=== PATIENT | male | born 1985 | race Caucasian/White ===

== ENCOUNTER 2023-06-01 05:29 | Inpatient (IN) | payer OTHER ==
[2023-06-01] VITALS (10 sets, daily range): BP systolic 101–129; BP diastolic 60–84; PULSE 60–99; RESP 16–22; TEMP 97.1–99.8
[~2023-06-01] VITALS: Ht 185.4 cm; Wt 96.5 kg
[2023-06-01] MEDS ORDERED: 0.9% SODIUM CHLORIDE 10 ML SYRINGE IVP PRN ×2 (06:00→09:45)
[2023-06-01] MEDS: SODIUM CHLORIDE 0.9% 2,450 ML IV ONE (06:09)
[2023-06-01 06:13] LABS: BASOPHILS % (AUTO) 0.9 % (0.0-2.0); EOSINOPHILS % (AUTO) 0.2 % (1.0-6.0); HEMOGLOBIN 7.2 g/dL (13.5-17.5); LYMPHOCYTES # (AUTO) 0.6 K/uL (1.0-4.8); MEAN CORPUSCULAR HEMOGLOBIN 36.2 pg (26.0-34.0); MEAN CORPUSCULAR HGB CONC 35.2 G/dL (31.0-37.0); MEAN CORPUSCULAR VOLUME 103 fL (80-100); MONOCYTES # (AUTO) 0.4 K/uL (0.1-1.0); MONOCYTES % (AUTO) 7.2 % (2.0-9.0); NEUTROPHILS # (AUTO) 4.8 K/uL (1.8-7.7); NEUTROPHILS % (AUTO) 81.7 % (40.0-70.0); PLATELET COUNT (AUTO) 107 K/uL (150-450); RED CELL DISTRIBUTION WIDTH 14.2 % (11.5-14.5); WHITE BLOOD COUNT (AUTO) 5.8 K/uL (4.5-11.0)
[2023-06-01 06:14] LABS: APPEARANCE,URINE CLEAR (CLEAR); BILIRUBIN,URINE NEGATIVE (NEGATIVE); COLOR,URINE YELLOW (YELLOW); GLUCOSE, URINE (UA) NEGATIVE (NEGATIVE); LEUKOCYTE ESTERASE ,URINE NEGATIVE (NEGATIVE); NITRATE,URINE NEGATIVE (NEGATIVE); OCCULT BLOOD,URINE NEGATIVE (NEGATIVE); PROTEIN,URINE NEGATIVE (NEGATIVE); SPECIFIC GRAVITIY, URINE 1.019 (1.003-1.030)
[2023-06-01 06:19] LABS: ANION GAP 18 mmol/L (8-16); CALCIUM, TOTAL 8.6 mg/dL (8.8-10.5); CARBON DIOXIDE 20 mmol/L (22-29); CHLORIDE 109 mmol/L (98-107); CREATININE 1.15 mg/dL (0.60-1.30); GLOMERULAR FILTR. RATE CALC 55 mL/min (>60); GLUCOSE,RANDOM 117 mg/dL (70-110); POTASSIUM 3.2 mmol/L (3.5-5.1); SODIUM SERUM 147 mmol/L (136-145); UREA NITROGEN, BLOOD 21 mg/dL (7-18)
[2023-06-01 06:21] LABS: INR 1.9 (0.9-1.1); PROTHROMBIN TIME 19.1 SEC (9.4-11.6)
[2023-06-01 06:22] LABS: HEMATOCRIT 20.6 % (41-53)
[2023-06-01 06:24] LABS: ALANINE AMINOTRANSFERASE 23 U/L (12-78); ALBUMIN 3.2 g/dL (3.4-5.0); ALKALINE PHOSPHATASE 90 U/L (46-116); ASPARTATE AMINOTRANSFERASE 93 U/L (15-37); BILIRUBIN,TOTAL 7.6 mg/dL (0.1-1.0); TOTAL PROTEIN, SERUM 6.8 g/dL (6.4-8.2)
[2023-06-01] MEDS ORDERED: IOHEXOL 350 MG/ML 100 ML VIAL ONE (06:26)
[2023-06-01] MEDS ORDERED: SODIUM CHLORIDE 0.9% 100 ML ONE (06:26)
[2023-06-01] MEDS: PIPERACILLIN/TAZO 3.375 GM/D5W 50 ML IV ONE (06:28)
[2023-06-01 06:42] LABS: LACTIC ACID 2.3 mmol/L (0.4-2.0)
[2023-06-01] MEDS: LORazepam 2 MG/ML VIAL IVP ONE ×2 (06:42→08:08)
[2023-06-01] MEDS: VANCOMYCIN HCL 1.25 GM in DEXTROSE 5%-WATER 250 ML IV ONE (06:42)
[2023-06-01] MEDS: PANTOPRAZOLE SODIUM 40 MG/VIAL IVP ONE (06:43)
[2023-06-01 06:53] LABS: ALCOHOL, BLOOD (SERUM) < 3 mg/dL (0-10)
[2023-06-01 06:56] LABS: TROPONIN I-HIGH SENSITIVITY 96 ng/L (<76)
[2023-06-01 07:02] LABS: B-TYPE NATRIURETIC PEPTIDE 512 pg/mL (0-100)
[2023-06-01 07:03] LABS: BILIRUBIN,TOTAL 7.6 mg/dL (0.1-1.0)
[2023-06-01 07:04] LABS: CREATINE KINASE, TOTAL ONLY 1144 U/L (39-308)
[2023-06-01 07:09] LABS: LIPASE 14 U/L (16-77)
[2023-06-01 07:29] LABS: ALCOHOL, URINE DRUG SCREEN NEGATIVE (NEGATIVE); AMPHET/METH SCREEN,URINE POSITIVE (NEGATIVE); BARBITURATE SCREEN, URINE NEGATIVE (NEGATIVE); BENZODIAZEPINES SCREEN,URINE NEGATIVE (NEGATIVE); CANNABINOID SCREEN,URINE POSITIVE (NEGATIVE); COCAINE SCREEN,URINE NEGATIVE (NEGATIVE); METHADONE SCREEN, URINE NEGATIVE (NEGATIVE); OPIATE SCREEN,URINE NEGATIVE (NEGATIVE); PHENCYCLIDINE SCREEN,URINE NEGATIVE (NEGATIVE)
[2023-06-01] MEDS: AZITHROMYCIN 500 MG/NS 250 ML IV ONE (07:29)
[2023-06-01] MEDS: OCTREOTIDE ACETATE 100 MCG/ML VIAL IVP ONE (07:39)
[2023-06-01] MEDS: OCTREOTIDE ACETATE 500 MCG in SODIUM CHLORIDE 0.9% 97.5 ML IV SCH ×2 (07:40→16:33)
[2023-06-01 07:59] LABS: INFLUENZA A-RTPCR,COMBO NEGATIVE (NEGATIVE); INFLUENZA B-RTPCR,COMBO NEGATIVE (NEGATIVE); RESPIRATORY SYNCYTIAL VRS-PCR NEGATIVE (NEGATIVE); SARS COVID19 RTPCR, COMBO NEGATIVE (NEGATIVE)
[2023-06-01 08:21] LABS: TROPONIN I-HIGH SENSITIVITY 105 ng/L (<76)
[2023-06-01 08:25] LABS: RBC MORPHOLOGY COMMENT ABNORMAL RBC MORPH
[2023-06-01] MEDS: PANTOPRAZOLE SODIUM 80 MG in SODIUM CHLORIDE 0.9% 100 ML IV SCH ×2 (08:45→18:32)
[2023-06-01] MEDS: LACTULOSE 200 GM/300 ML RECTAL SOLUTION PR ONE (08:45)
[2023-06-01] MEDS: HALOPERIDOL LACTATE 5 MG/ML VIAL IM ONE (08:46)
[2023-06-01] MEDS: DiphenhydrAMINE HCL 50 MG/ML VIAL IM ONE (08:46)
[2023-06-01] MEDS: LORazepam 2 MG/ML VIAL IM ONE (08:46)
[2023-06-01] MEDS ORDERED: ONDANSETRON HCL 4 MG/2 ML VIAL IVP PRN ×2 (09:45→13:00)
[2023-06-01] MEDS ORDERED: ACETAMINOPHEN 325 MG TABLET PO PRN (13:00)
[2023-06-01] MEDS ORDERED: MAGNESIUM HYDROXIDE SUSPENSION 30 ML UDCUP PO PRN (13:00)
[2023-06-01] MEDS ORDERED: HYDROCODONE/ACETAMINOPHEN 5-325 MG TABLET PO PRN (13:00)
[2023-06-01] MEDS ORDERED: BISACODYL 10 MG RECTAL RECTAL SUPPOSITORY PR PRN (13:00)
[2023-06-01] MEDS ORDERED: ZOLPIDEM TARTRATE 5 MG TABLET PO PRN (13:00)
[2023-06-01] MEDS: SODIUM CHLORIDE 0.9% 1,000 ML IV ONE (13:25)
[2023-06-01] MEDS: DEXMEDETOMIDINE HCL 400 MCG in SODIUM CHLORIDE 0.9% 96 ML IV PRN (13:30)
[2023-06-01] MEDS ORDERED: PHYTONADIONE 1 MG/0.5 ML SQ ONE (13:45)
[2023-06-01] MEDS: MORPHINE SULFATE 2 MG/ML SYRINGE IVP PRN (13:53)
[2023-06-01] MEDS: PIPERACILLIN/TAZO 3.375 GM/D5W 50 ML IV SCH (14:13)
[2023-06-01 14:27] LABS: BASOPHILS % (AUTO) 1.3 % (0.0-2.0); EOSINOPHILS % (AUTO) 0.5 % (1.0-6.0); HEMATOCRIT 21.4 % (41-53); HEMOGLOBIN 7.3 g/dL (13.5-17.5); LYMPHOCYTES # (AUTO) 0.8 K/uL (1.0-4.8); LYMPHOCYTES % (AUTO) 15.3 % (22.0-44.0); MEAN CORPUSCULAR HEMOGLOBIN 35.4 pg (26.0-34.0); MEAN CORPUSCULAR HGB CONC 34.2 G/dL (31.0-37.0); MEAN CORPUSCULAR VOLUME 104 fL (80-100); MONOCYTES # (AUTO) 0.4 K/uL (0.1-1.0); MONOCYTES % (AUTO) 8.6 % (2.0-9.0); NEUTROPHILS # (AUTO) 3.9 K/uL (1.8-7.7); NEUTROPHILS % (AUTO) 74.3 % (40.0-70.0); PLATELET COUNT (AUTO) 94 K/uL (150-450); RED BLOOD CELL COUNT(AUTO) 2.07 MIL/uL (4.50-5.90); RED CELL DISTRIBUTION WIDTH 14.5 % (11.5-14.5); WHITE BLOOD COUNT (AUTO) 5.2 K/uL (4.5-11.0)
[2023-06-01 14:35] LABS: CREATININE 1.21 mg/dL (0.60-1.30); POTASSIUM 3.3 mmol/L (3.5-5.1)
[2023-06-01 14:50] LABS: RBC MORPHOLOGY COMMENT ABNORMAL RBC MORPH
[2023-06-01] MEDS: PHYTONADIONE 10 MG/ML VIAL SQ ONE (15:09)
[2023-06-01] MEDS: POTASSIUM CHL 10 MEQ/WATER 50 ML IV SCH (15:09)
[2023-06-01] MEDS: VANCOMYCIN HCL 1.25 GM in DEXTROSE 5%-WATER 250 ML IV SCH (20:37)
[2023-06-01] MEDS: DOCUSATE SODIUM 100 MG CAPSULE PO SCH (20:40)
[2023-06-01] MEDS: LACTULOSE 200 GM/300 ML RECTAL SOLUTION PR SCH (20:42)
[2023-06-01] MEDS ORDERED: LACTULOSE 200 GM/300 ML RECTAL SOLUTION PR SCH (21:00)
[2023-06-01 21:55] LABS: BASOPHILS % (AUTO) 1.3 % (0.0-2.0); EOSINOPHILS % (AUTO) 2.2 % (1.0-6.0); HEMATOCRIT 23.7 % (41-53); HEMOGLOBIN 8.3 g/dL (13.5-17.5); LYMPHOCYTES # (AUTO) 0.7 K/uL (1.0-4.8); LYMPHOCYTES % (AUTO) 14.3 % (22.0-44.0); MEAN CORPUSCULAR HEMOGLOBIN 36.4 pg (26.0-34.0); MEAN CORPUSCULAR VOLUME 104 fL (80-100); MONOCYTES # (AUTO) 0.4 K/uL (0.1-1.0); MONOCYTES % (AUTO) 8.4 % (2.0-9.0); NEUTROPHILS # (AUTO) 3.5 K/uL (1.8-7.7); NEUTROPHILS % (AUTO) 73.8 % (40.0-70.0); PLATELET COUNT (AUTO) 98 K/uL (150-450); RED BLOOD CELL COUNT(AUTO) 2.27 MIL/uL (4.50-5.90); RED CELL DISTRIBUTION WIDTH 14.2 % (11.5-14.5); WHITE BLOOD COUNT (AUTO) 4.7 K/uL (4.5-11.0)
[2023-06-01 22:02] LABS: ANION GAP 11 mmol/L (8-16); CALCIUM, TOTAL 8.1 mg/dL (8.8-10.5); CARBON DIOXIDE 23 mmol/L (22-29); CHLORIDE 113 mmol/L (98-107); CREATININE 1.25 mg/dL (0.60-1.30); GLOMERULAR FILTR. RATE CALC > 60 mL/min (>60); GLUCOSE,RANDOM 143 mg/dL (70-110); POTASSIUM 3.8 mmol/L (3.5-5.1); SODIUM SERUM 147 mmol/L (136-145); UREA NITROGEN, BLOOD 19 mg/dL (7-18)
[2023-06-01 22:21] LABS: RBC MORPHOLOGY COMMENT ABNORMAL RBC MORPH
[2023-06-02] VITALS: BP 125/75; PULSE 89; RESP 20; TEMP 97.6
[2023-06-02 04:00] VITALS: BP 115/72; PULSE 73; RESP 22; TEMP 100.4; TEMP 97.4
[2023-06-02] MEDS ORDERED: PROPOFOL 1% 20 ML VIAL IVP ONE (05:27)
[2023-06-02] MEDS ORDERED: LIDOCAINE/PF 2% 5 ML SYRINGE IVP ONE (05:27)
[2023-06-02 06:01] LABS: BASOPHILS % (AUTO) 0.7 % (0.0-2.0); EOSINOPHILS % (AUTO) 0.6 % (1.0-6.0); HEMATOCRIT 21.8 % (41-53); HEMOGLOBIN 7.5 g/dL (13.5-17.5); LYMPHOCYTES # (AUTO) 0.6 K/uL (1.0-4.8); LYMPHOCYTES % (AUTO) 10.5 % (22.0-44.0); MEAN CORPUSCULAR HGB CONC 34.7 G/dL (31.0-37.0); MEAN CORPUSCULAR VOLUME 104 fL (80-100); MONOCYTES # (AUTO) 0.4 K/uL (0.1-1.0); MONOCYTES % (AUTO) 8.1 % (2.0-9.0); NEUTROPHILS # (AUTO) 4.4 K/uL (1.8-7.7); NEUTROPHILS % (AUTO) 80.1 % (40.0-70.0); PLATELET COUNT (AUTO) 89 K/uL (150-450); RED BLOOD CELL COUNT(AUTO) 2.09 MIL/uL (4.50-5.90); RED CELL DISTRIBUTION WIDTH 14.4 % (11.5-14.5); WHITE BLOOD COUNT (AUTO) 5.5 K/uL (4.5-11.0)
[2023-06-02 06:23] LABS: ALANINE AMINOTRANSFERASE 19 U/L (12-78); ALBUMIN 2.5 g/dL (3.4-5.0); ALKALINE PHOSPHATASE 64 U/L (46-116); ANION GAP 13 mmol/L (8-16); ASPARTATE AMINOTRANSFERASE 56 U/L (15-37); BILIRUBIN,TOTAL 5.7 mg/dL (0.1-1.0); CALCIUM, TOTAL 7.8 mg/dL (8.8-10.5); CARBON DIOXIDE 20 mmol/L (22-29); CHLORIDE 115 mmol/L (98-107); CREATINE KINASE, TOTAL ONLY 414 U/L (39-308); CREATININE 1.21 mg/dL (0.60-1.30); GLOMERULAR FILTR. RATE CALC > 60 mL/min (>60); GLUCOSE,RANDOM 127 mg/dL (70-110); POTASSIUM 3.3 mmol/L (3.5-5.1); SODIUM SERUM 148 mmol/L (136-145); TOTAL PROTEIN, SERUM 5.7 g/dL (6.4-8.2); UREA NITROGEN, BLOOD 18 mg/dL (7-18)
[2023-06-02 06:26] LABS: RBC MORPHOLOGY COMMENT ABNORMAL RBC MORPH
[2023-06-02 08:00] VITALS: BP 97/65; PULSE 65; RESP 20; TEMP 99.1
[2023-06-02] MEDS: PANTOPRAZOLE SODIUM 40 MG DR TABLET PO SCH (08:24)
[2023-06-02 12:00] VITALS: BP 105/65; PULSE 58; RESP 15; TEMP 97.5
[2023-06-02 13:36] LABS: BASOPHILS % (AUTO) 1.1 % (0.0-2.0); EOSINOPHILS % (AUTO) 1.2 % (1.0-6.0); HEMATOCRIT 21.7 % (41-53); HEMOGLOBIN 7.5 g/dL (13.5-17.5); LYMPHOCYTES # (AUTO) 0.7 K/uL (1.0-4.8); LYMPHOCYTES % (AUTO) 16.9 % (22.0-44.0); MEAN CORPUSCULAR HEMOGLOBIN 36.3 pg (26.0-34.0); MEAN CORPUSCULAR HGB CONC 34.6 G/dL (31.0-37.0); MEAN CORPUSCULAR VOLUME 105 fL (80-100); MONOCYTES # (AUTO) 0.4 K/uL (0.1-1.0); MONOCYTES % (AUTO) 9.7 % (2.0-9.0); NEUTROPHILS # (AUTO) 3.1 K/uL (1.8-7.7); NEUTROPHILS % (AUTO) 71.1 % (40.0-70.0); PLATELET COUNT (AUTO) 86 K/uL (150-450); RED BLOOD CELL COUNT(AUTO) 2.06 MIL/uL (4.50-5.90); RED CELL DISTRIBUTION WIDTH 14.6 % (11.5-14.5); WHITE BLOOD COUNT (AUTO) 4.4 K/uL (4.5-11.0)
[2023-06-02 13:54] LABS: RBC MORPHOLOGY COMMENT ABNORMAL RBC MORPH
[2023-06-02 16:00] VITALS: BP 97/55; PULSE 66; RESP 19; TEMP 97.6
[2023-06-02 20:00] VITALS: BP 103/63; PULSE 58; PULSE 67; RESP 16; TEMP 98.2
[2023-06-02] MEDS: LACTULOSE 20 GM/30 ML SOLUTION UDCUP PO SCH (20:45)
[2023-06-02] MEDS: PANTOPRAZOLE SODIUM 40 MG/VIAL IVP SCH (20:45)
[2023-06-02 22:27] LABS: BASOPHILS % (AUTO) 1.5 % (0.0-2.0); EOSINOPHILS % (AUTO) 2.5 % (1.0-6.0); LYMPHOCYTES # (AUTO) 0.7 K/uL (1.0-4.8); MEAN CORPUSCULAR HGB CONC 33.9 G/dL (31.0-37.0); MEAN CORPUSCULAR VOLUME 106 fL (80-100); MONOCYTES # (AUTO) 0.4 K/uL (0.1-1.0); MONOCYTES % (AUTO) 12.2 % (2.0-9.0); NEUTROPHILS # (AUTO) 1.9 K/uL (1.8-7.7); NEUTROPHILS % (AUTO) 61.8 % (40.0-70.0); PLATELET COUNT (AUTO) 80 K/uL (150-450); RED BLOOD CELL COUNT(AUTO) 1.95 MIL/uL (4.50-5.90); RED CELL DISTRIBUTION WIDTH 14.4 % (11.5-14.5); WHITE BLOOD COUNT (AUTO) 3.1 K/uL (4.5-11.0)
[2023-06-02 22:38] LABS: HEMATOCRIT 20.8 % (41-53)
[2023-06-02 23:05] LABS: RBC MORPHOLOGY COMMENT ABNORMAL RBC MORPH
[2023-06-03] VITALS (12 sets, daily range): BP systolic 90–117; BP diastolic 45–72; PULSE 58–88; RESP 14–19; TEMP 97.6–99.2
[2023-06-03] MEDS ORDERED: SODIUM CHLORIDE 0.9% 500 ML IV ONE (00:23)
[2023-06-03] MEDS ORDERED: SODIUM CHLORIDE 0.9% 1,000 ML ONE (02:47)
[2023-06-03 06:52] LABS: BASOPHILS % (AUTO) 2.9 % (0.0-2.0); HEMATOCRIT 29.1 % (41-53); HEMOGLOBIN 10.1 g/dL (13.5-17.5); LYMPHOCYTES # (AUTO) 0.8 K/uL (1.0-4.8); LYMPHOCYTES % (AUTO) 18.4 % (22.0-44.0); MEAN CORPUSCULAR HEMOGLOBIN 35.6 pg (26.0-34.0); MEAN CORPUSCULAR HGB CONC 34.7 G/dL (31.0-37.0); MEAN CORPUSCULAR VOLUME 103 fL (80-100); MONOCYTES # (AUTO) 0.5 K/uL (0.1-1.0); MONOCYTES % (AUTO) 12.1 % (2.0-9.0); NEUTROPHILS # (AUTO) 2.7 K/uL (1.8-7.7); NEUTROPHILS % (AUTO) 63.6 % (40.0-70.0); PLATELET COUNT (AUTO) 95 K/uL (150-450); RED BLOOD CELL COUNT(AUTO) 2.84 MIL/uL (4.50-5.90); RED CELL DISTRIBUTION WIDTH 16.9 % (11.5-14.5); WHITE BLOOD COUNT (AUTO) 4.2 K/uL (4.5-11.0)
[2023-06-03 07:04] LABS: ANION GAP 13 mmol/L (8-16); CARBON DIOXIDE 21 mmol/L (22-29); CHLORIDE 108 mmol/L (98-107); CREATININE 1.24 mg/dL (0.60-1.30); GLOMERULAR FILTR. RATE CALC > 60 mL/min (>60); GLUCOSE,RANDOM 87 mg/dL (70-110); POTASSIUM 3.1 mmol/L (3.5-5.1); SODIUM SERUM 142 mmol/L (136-145); UREA NITROGEN, BLOOD 17 mg/dL (7-18); VANCOMYCIN,RANDOM 23.2 mcg/mL (25.0-50.0)
[2023-06-03 08:55] LABS: RBC MORPHOLOGY COMMENT ABNORMAL RBC MORPH
[2023-06-03] MEDS: VANCOMYCIN 1GM/WATER(PEG/NADA) 200 ML IV SCH (10:23)
[2023-06-03] MEDS: POTASSIUM CHL 10 MEQ/WATER 50 ML IV PRN (12:07)
[2023-06-03] MEDS: POTASSIUM CHLORIDE 20 MEQ ER TABLET PO PRN (18:47)
[2023-06-03 20:41] LABS: GLUCOMETER DEV NAME(LOC) 5S.2C; GLUCOSE,POINT OF CARE 94 MG/DL (70-110)
[2023-06-03 23:37] LABS: ANION GAP 12 mmol/L (8-16); CALCIUM, TOTAL 7.5 mg/dL (8.8-10.5); CARBON DIOXIDE 20 mmol/L (22-29); CHLORIDE 106 mmol/L (98-107); CREATININE 1.15 mg/dL (0.60-1.30); GLOMERULAR FILTR. RATE CALC > 60 mL/min (>60); GLUCOSE,RANDOM 107 mg/dL (70-110); POTASSIUM 3.1 mmol/L (3.5-5.1); SODIUM SERUM 138 mmol/L (136-145); UREA NITROGEN, BLOOD 13 mg/dL (7-18)
[2023-06-04] VITALS (7 sets, daily range): BP systolic 115–123; BP diastolic 65–80; PULSE 65–81; RESP 16–19; TEMP 97.8–98.6
[2023-06-04] MEDS ORDERED: SODIUM CHLORIDE 0.9% 250 ML IV ONE (01:29)
[2023-06-04 15:50] LABS: BASOPHILS % (AUTO) 1.2 % (0.0-2.0); EOSINOPHILS % (AUTO) 2.9 % (1.0-6.0); HEMATOCRIT 25.3 % (41-53); HEMOGLOBIN 8.6 g/dL (13.5-17.5); LYMPHOCYTES # (AUTO) 0.8 K/uL (1.0-4.8); LYMPHOCYTES % (AUTO) 22.1 % (22.0-44.0); MEAN CORPUSCULAR HEMOGLOBIN 34.9 pg (26.0-34.0); MEAN CORPUSCULAR HGB CONC 34.1 G/dL (31.0-37.0); MEAN CORPUSCULAR VOLUME 102 fL (80-100); MONOCYTES # (AUTO) 0.6 K/uL (0.1-1.0); NEUTROPHILS # (AUTO) 2.2 K/uL (1.8-7.7); NEUTROPHILS % (AUTO) 58.8 % (40.0-70.0); PLATELET COUNT (AUTO) 103 K/uL (150-450); RED BLOOD CELL COUNT(AUTO) 2.47 MIL/uL (4.50-5.90); RED CELL DISTRIBUTION WIDTH 16.7 % (11.5-14.5); WHITE BLOOD COUNT (AUTO) 3.8 K/uL (4.5-11.0)
[2023-06-04 16:18] LABS: ANION GAP 12 mmol/L (8-16); CALCIUM, TOTAL 7.8 mg/dL (8.8-10.5); CARBON DIOXIDE 20 mmol/L (22-29); CHLORIDE 109 mmol/L (98-107); CREATININE 1.11 mg/dL (0.60-1.30); GLOMERULAR FILTR. RATE CALC > 60 mL/min (>60); GLUCOSE,RANDOM 114 mg/dL (70-110); POTASSIUM 3.7 mmol/L (3.5-5.1); SODIUM SERUM 141 mmol/L (136-145); UREA NITROGEN, BLOOD 9 mg/dL (7-18)
[2023-06-04 16:22] LABS: ALANINE AMINOTRANSFERASE 14 U/L (12-78); ALBUMIN 2.3 g/dL (3.4-5.0); ALKALINE PHOSPHATASE 67 U/L (46-116); ASPARTATE AMINOTRANSFERASE 35 U/L (15-37); BILIRUBIN,TOTAL 3.6 mg/dL (0.1-1.0); TOTAL PROTEIN, SERUM 5.4 g/dL (6.4-8.2)
[2023-06-04 18:48] LABS: RBC MORPHOLOGY COMMENT ABNORMAL RBC MORPH
[2023-06-05 06:04] VITALS: BP 107/72; PULSE 68; RESP 18; TEMP 97.7
[2023-06-05 07:37] LABS: ANION GAP 11 mmol/L (8-16); CALCIUM, TOTAL 7.8 mg/dL (8.8-10.5); CARBON DIOXIDE 20 mmol/L (22-29); CHLORIDE 108 mmol/L (98-107); CREATININE 1.09 mg/dL (0.60-1.30); GLOMERULAR FILTR. RATE CALC > 60 mL/min (>60); GLUCOSE,RANDOM 95 mg/dL (70-110); POTASSIUM 3.3 mmol/L (3.5-5.1); SODIUM SERUM 139 mmol/L (136-145); UREA NITROGEN, BLOOD 7 mg/dL (7-18); VANCOMYCIN,RANDOM 21.1 mcg/mL (25.0-50.0)
[2023-06-05 08:00] VITALS: BP 123/74; PULSE 69; RESP 18; TEMP 98.1
[2023-06-05 16:38] VITALS: BP 124/79; PULSE 66; RESP 18; TEMP 98.2
[2023-06-05 19:52] VITALS: BP 106/68; PULSE 65; RESP 18; TEMP 98.1
[2023-06-06 00:38] VITALS: BP 113/80; PULSE 72; RESP 18; TEMP 98.3
[2023-06-06 04:40] VITALS: BP 100/64; PULSE 70; RESP 17; TEMP 98.2
[2023-06-06 08:00] VITALS: BP 110/69; PULSE 68; RESP 18; TEMP 98
[2023-06-06 08:00] LABS: ANION GAP 9 mmol/L (8-16); CALCIUM, TOTAL 8.1 mg/dL (8.8-10.5); CARBON DIOXIDE 23 mmol/L (22-29); CHLORIDE 107 mmol/L (98-107); CREATININE 1.02 mg/dL (0.60-1.30); GLOMERULAR FILTR. RATE CALC > 60 mL/min (>60); GLUCOSE,RANDOM 96 mg/dL (70-110); PHOSPHORUS 3.9 mg/dL (2.5-4.9); SODIUM SERUM 139 mmol/L (136-145); UREA NITROGEN, BLOOD 5 mg/dL (7-18)
[2023-06-06 11:48] VITALS: BP 107/68; PULSE 64; RESP 19; TEMP 98.1
[2023-06-06 15:00] VITALS: BP 115/75; PULSE 65; RESP 18; TEMP 98.2
[2023-06-06 20:25] VITALS: BP 119/78; PULSE 65; RESP 18; TEMP 98
[2023-06-07 00:55] VITALS: BP 96/60; PULSE 71; RESP 18; TEMP 98.3
[2023-06-07 04:12] VITALS: BP 105/63; PULSE 82; RESP 18; TEMP 98.5
[2023-06-07 08:05] VITALS: BP 107/68; PULSE 77; RESP 18; TEMP 98
[2023-06-07 11:23] VITALS: BP 114/71; PULSE 72; RESP 18; TEMP 97.7
[2023-06-07] MEDS ORDERED: AMOX1TAB16 PO (12:52)
[2023-06-07] MEDS ORDERED: PANT40VI14 IVP (12:52)
[2023-06-07] MEDS ORDERED: LACT10SO10 PO (12:52)
[2023-06-07] MEDS ORDERED: PANT-31 PO (12:53)
== END 2023-06-07 16:05 | disposition home health service (06) | DRG 720 ==
LOC: EMS 05:31 → ICU 11:43 → EDBD 11:43 → 5S 06-03 15:00
PROVIDERS: ADMIT Internal Medicine; ATTEND Internal Medicine
PROC: 30233N1 Transfusion of Nonautologous Red Blood Cells into Peripheral Vein, Percutaneous Approach (ICD-10-PCS; 2023-06-01)
PROC: 06L38CZ Occlusion of Esophageal Vein with Extraluminal Device, Via Natural or Artificial Opening Endoscopic (ICD-10-PCS; principal; 2023-06-01 16:00)
DX: A41.9 Sepsis, unspecified organism (principal); J69.0 Pneumonitis due to inhalation of food and vomit; G92.8 Other toxic encephalopathy; I85.11 Secondary esophageal varices with bleeding; K76.82 Hepatic encephalopathy; I85.10 Secondary esophageal varices without bleeding; K70.30 Alcoholic cirrhosis of liver without ascites; N17.9 Acute kidney failure, unspecified; K76.6 Portal hypertension; D69.6 Thrombocytopenia, unspecified; E87.0 Hyperosmolality and hypernatremia; E87.1 Hypo-osmolality and hyponatremia; Z20.822 Contact with and (suspected) exposure to COVID-19; J90 Pleural effusion, not elsewhere classified; M62.82 Rhabdomyolysis; E87.6 Hypokalemia; K25.9 Gastric ulcer, unspecified as acute or chronic, without hemorrhage or perforation; F17.200 Nicotine dependence, unspecified, uncomplicated; F20.9 Schizophrenia, unspecified; Y90.9 Presence of alcohol in blood, level not specified; K80.20 Calculus of gallbladder without cholecystitis without obstruction; F10.10 Alcohol abuse, uncomplicated; D64.9 Anemia, unspecified; F15.10 Other stimulant abuse, uncomplicated
CPT/HCPCS: 0241U; 70450; 71045; 71260; 72193; 74160; 76700; 80048; 80053; 80202; 80307; 81003; 82140; 82247; 82248; 82271; 82550; 82962; 83605; 83690; 83735; 83880; 84100; 84132; 84145; 84484; 85025; 85610; 86850; 86900; 86901; 86923; 87040; 87077; 87081; 87205; 93005; 97163; 99291; C9113; G0480; J0456; J1200; J1630; J2060; J2270; J2354; J2543; J2704; J3370; J3430; J3480; J3490; J7030; J7040; J7050; J7060; P9016; Q9967; 36415-L1; 36415-TC

== ENCOUNTER 2024-05-12 07:57 | Emergency (ER) | payer OTHER ==
[~2024-05-12] VITALS: Ht 190.5 cm; Wt 91.0 kg
[~2024-05-12 07:57] MED LIST: AMOX-457 PO; LACT10SO10 PO; PANT-31 PO
[2024-05-12 08:38] VITALS: TEMP 98.3
[2024-05-12] MEDS: NALOXONE HCL 1 MG/ML 2 ML SYRINGE IVP ONE (09:31)
[2024-05-12] MEDS: PERTUSS(ACELL),DIPH,TET/PF 0.5 ML SYRINGE [ADULT] IM. ONE (09:31)
[2024-05-12 09:32] LABS: EOSINOPHILS % (AUTO) 3.6 % (1.0-6.0); HEMATOCRIT 27.6 % (41-53); HEMOGLOBIN 9.3 g/dL (13.5-17.5); LYMPHOCYTES # (AUTO) 1.1 K/uL (1.0-4.8); LYMPHOCYTES % (AUTO) 31.1 % (22.0-44.0); MEAN CORPUSCULAR HEMOGLOBIN 31.4 pg (26.0-34.0); MEAN CORPUSCULAR HGB CONC 33.9 G/dL (31.0-37.0); MEAN CORPUSCULAR VOLUME 93 fL (80-100); MONOCYTES # (AUTO) 0.5 K/uL (0.1-1.0); MONOCYTES % (AUTO) 14.3 % (2.0-9.0); NEUTROPHILS # (AUTO) 1.7 K/uL (1.8-7.7); PLATELET COUNT (AUTO) 152 K/uL (150-450); RED BLOOD CELL COUNT(AUTO) 2.98 MIL/uL (4.50-5.90); RED CELL DISTRIBUTION WIDTH 15.4 % (11.5-14.5); WHITE BLOOD COUNT (AUTO) 3.5 K/uL (4.5-11.0)
[2024-05-12 09:43] LABS: ANION GAP 8 mmol/L (8-16); CARBON DIOXIDE 26 mmol/L (22-29); CHLORIDE 105 mmol/L (98-107); CREATININE 0.66 mg/dL (0.60-1.30); GLOMERULAR FILTR. RATE CALC > 60 mL/min (>60); GLUCOSE,RANDOM 100 mg/dL (70-110); POTASSIUM 3.2 mmol/L (3.5-5.1); SODIUM SERUM 138 mmol/L (136-145); UREA NITROGEN, BLOOD 13 mg/dL (7-18)
[2024-05-12] MEDS: POTASSIUM CHL 10 MEQ/WATER 50 ML IV SCH (10:51)
[2024-05-12 10:52] VITALS: BP 127/58; PULSE 85; RESP 16; O2SAT 99
== END 2024-05-12 12:31 | disposition short-term general hospital (02) ==
LOC: EMS 07:58
DX: S22.080A Wedge compression fracture of T11-T12 vertebra, initial encounter for closed fracture (principal); S02.40FA Zygomatic fracture, left side, initial encounter for closed fracture; S00.83XA Contusion of other part of head, initial encounter; F32.A Depression, unspecified; Z79.899 Other long term (current) drug therapy; W22.8XXA Striking against or struck by other objects, initial encounter; Y93.89 Activity, other specified; Y92.89 Other specified places as the place of occurrence of the external cause; Y99.8 Other external cause status
CPT/HCPCS: 80048; 85025; 36415; 70450; 70486; 72125; 72128; 72131; 90715; 99285; 93005; 90471; 96361; 96365; G0480; J2310; J3480